=== PATIENT | female | born 1985 | race Caucasian/White ===

== ENCOUNTER → 2016-09-16 | Outpatient (CLI) | payer MEDICAID, OTHER ==
[~2016-09-16] MED LIST: CLON1TAB PO; COLA100C3 PO; DEPA1TAB3 PO; HYDR1CAP25 PO; IBUP80TA PO; NEXI20CA PO; PERCOCET PO; PRENTAB40 PO; TUMSCHW16 PO
[2016-09-16 10:59] LABS: BASO % 0.3 % (0.0-1.0); EOS # 0.2 K/mm3 (0.0-0.50); EOS % 2.8 % (0.0-3.0); LARGE UNSTAINED CELL # 0.1 K/mm3 (0.0-0.4); LYMPH # 1.7 K/mm3 (1.5-4.5); MEAN CORPUSCULAR HEMOGLOBIN 30.9 pg (27.0-33.0); MEAN CORPUSCULAR HGB CONC 34.7 g/dl (32.0-36.5); MONO # 0.4 K/mm3 (0.0-0.8); MONO % 4.1 % (0.0-5.0); NEUTROPHILS # 6.4 K/mm3 (1.8-7.7); NEUTROPHILS % 73.8 % (36.0-66.0); PLATELET COUNT, AUTOMATED 271 k/mm3 (150-450); RED CELL DISTRIBUTION WIDTH 13.2 % (11.5-14.5); WHITE BLOOD COUNT 8.7 K/mm3 (4.0-10.0)
[2016-09-17 10:42] LABS: HBsAg Prenatal NEGATIVE (NEGATIVE)
== END ==
LOC: M LAB 10:25
PROVIDERS: ATTEND Obstetrics & Gynecology
DX: Z34.81 Encounter for supervision of other normal pregnancy, first trimester (principal)

== ENCOUNTER → 2016-09-25 | Outpatient (CLI) | payer OTHER ==
--- NOTE | 2016-09-26 03:39 | REP ---
Clinical: Anatomical evaluation. Comparison: None . Findings: Examination demonstrates a single live intrauterine in breech presentation. motion is identified by technologist. Placenta is noted anteriorly and grade one without evidence for placenta previa or abruption. Amniotic fluid volume is normal. Cervix measures the 4.0 cm in length and appears closed. No evidence for nuchal cord. Gestational age by LMP 20 weeks 0 days with HENNA 02/12/2017 . Gestational age by current measurements 19 weeks 3 days with HENNA 02/16/2017 . FHR equals 147 beats per minute. BPD 4.3 cm 19 weeks 0 days HC 16.6 cm 19 weeks 2 days AC 15.1 cm 20 weeks 2 days FL 3.0 cm 19 weeks 1 day HL 2.9 cm 18 weeks 4 days HC/AC ratio 1.10 Estimated weight 308 grams ( 37th percentile). Anatomical assessment demonstrates normal structures including cranium, choroid plexus, cavum, cerebellum/posterior fossa, facial features, lungs, four-chamber heart/ventricular outflow tracts, diaphragm, stomach, cord insertion/three-vessel cord, kidneys/bladder, and extremities. Limited evaluation of the spine due to positioning. Echogenic focus on the left cardiac ventricle likely chordae tendineae. Impression: 1. Single live intrauterine in breech presentation demonstrating appropriate interval growth. 2. Anatomical limitations as described above may warrant followup. Remainder of the assessment is normal. Signed by Rodney Santos MD 09/26/2016 03:31 A
== END ==
LOC: M RAD 09:39
PROVIDERS: ATTEND Specialist
DX: Z34.82 Encounter for supervision of other normal pregnancy, second trimester (principal)

== ENCOUNTER → 2016-10-30 | Outpatient (CLI) | payer OTHER ==
[~2016-10-30] MED LIST changes: -COLA100C3 PO; +COLA100C5 PO; +HYDR-3713 PO; +IBUP-1114 PO; +IBUP1TAB7 PO; +MOM30SS PO; +PRENTAB9 PO; +VENL37.52 PO; +VICO5TAB16 PO
--- NOTE | 2016-10-30 12:50 | REP ---
Obstetric sonography: History: Supervision of followup anatomy. Comparison study September 25, 2016. Findings: Scanning demonstrates a viable single intrauterine gestation in a breech lie. motion is observed and heart rate is recorded at 147 beats per minute. An anterior grade 1 placenta is seen without evidence of previa. Amniotic fluid is subjectively normal. Closed cervical length is 4.0 cm. No extrauterine abnormalities observed. There has been less than expected interval growth. No anomaly is seen. The following anatomic structures are identified today and felt to be sonographically unremarkable: cranium, choroid plexus, cavum, cerebellum and posterior fossa, face and profile, lungs, four-chamber heart with left and right ventricular outflow tract views, diaphragm, left-sided stomach, abdominal wall cord insertion, three-vessel umbilical cord, kidneys and bladder, spine, upper and lower extremities. Biometry chart: BPD 5.8 cm = 23 weeks 5 days Head circumference 22.1 cm = 24 weeks 1 day Abdominal circumference 19.5 cm = 24 weeks 1 day Femur length 4.3 cm = 24 weeks 0 days Humeral length 4.0 cm = 24 weeks 2 days Cerebellar diameter 2.8 cm = 24 weeks 4 days HC/AC ratio normal 1.1. Cephalic index normal 0.72. Estimated weight 663 grams, 0 pounds 7 ounces, 21st percentile for 25 weeks 0 days. S/D ratio in the umbilical cord artery by Doppler normal 3.45. Impression: Viable single intrauterine gestation at 23 weeks 5 days by today's composite criteria. Expected gestational age estimate based on prior sonography is 25 weeks 0 days. HENNA by prior sonography February 12, 2017. Estimated weight 21st percentile. anatomic survey is felt to be complete. Signed by Ishan Gaitan MD 10/30/2016 04:40 P
== END ==
LOC: M SMT 10:34
PROVIDERS: ATTEND Obstetrics & Gynecology
DX: O34.211 Maternal care for low transverse scar from previous cesarean delivery (principal); Z3A.23 23 weeks gestation of pregnancy

== ENCOUNTER 2016-12-04 11:11 | Outpatient (CLI) | payer OTHER ==
[~2016-12-04] VITALS: Ht 165.1 cm; Wt 52.0 kg
[~2016-12-04 11:11] MED LIST changes: -HYDR-3713 PO; -IBUP-1114 PO; -IBUP1TAB7 PO; -MOM30SS PO; -PRENTAB9 PO; -VENL37.52 PO; -VICO5TAB16 PO
[2016-12-04] MEDS ORDERED: HYDR-3713 PO (11:17)
[2016-12-04] MEDS ORDERED: LR 1,000 ML IV SCH (11:19)
[2016-12-04] MEDS ORDERED: LACTATED RINGER'S 1000 ML IV STA (11:19)
[2016-12-04 11:31] VITALS: BP 117/61
[2016-12-04 12:05] LABS: MEAN CORPUSCULAR HGB CONC 35.6 g/dl (32.0-36.5); MEAN CORPUSCULAR VOLUME 89.9 fl (80.0-96.0); RED CELL DISTRIBUTION WIDTH 12.7 % (11.5-14.5); WHITE BLOOD COUNT 12.9 K/mm3 (4.0-10.0)
[2016-12-04] MEDS ORDERED: TERBUTALINE SULFATE 1 MG/ML VIAL (J3105) SC ONE (13:00)
[2016-12-04 13:08] VITALS: BP 109/57
[2016-12-12 08:07] LABS: GC Carboxy THC 324 ng/mL (Cutoff=10)
[2017-01-23] MEDS ORDERED: VENL37.52 PO (07:51)
== END 2016-12-04 15:00 | disposition home or self-care (01) ==
LOC: M LDO 11:11
PROVIDERS: ATTEND Specialist
DX: O99.89 Other specified diseases and conditions complicating pregnancy, childbirth and the puerperium (principal); Z3A.28 28 weeks gestation of pregnancy; O24.913 Unspecified diabetes mellitus in pregnancy, third trimester; Z96.41 Presence of insulin pump (external) (internal); O47.03 False labor before 37 completed weeks of gestation, third trimester; O23.33 Infections of other parts of urinary tract in pregnancy, third trimester
CPT/HCPCS: 76815; 80307; 80349; 85027; 96372; 96374; J3105

== ENCOUNTER → 2017-01-12 | Outpatient (CLI) | payer OTHER ==
[~2017-01-12] MED LIST changes: +HYDR-3713 PO; +IBUP-1114 PO; +IBUP1TAB7 PO; +MOM30SS PO; +PRENTAB9 PO; +VENL37.52 PO; +VICO5TAB16 PO
--- NOTE | 2017-01-12 13:29 | REP ---
OB ULTRASOUND: Real-time sonographic evaluation of the gravid uterus performed. There is a single living intrauterine gestation with estimated gestational age of 34 weeks 4 days. EDC 02/19/2017. Today's measurements indicate appropriate growth. BPD 83 mm 33 weeks 2 days, 30th percentile HC 308 mm 34 weeks 3 days, 47th percentile AC 302 mm 34 weeks 1 day, 44th percentile FL 65 mm 33 weeks 4 days, 34th percentile HC/AC ratio is 1.02 within normal range. Estimated weight 2310 grams, 35th percentile. Cervix is closed and measures 3.8 cm in length. heart rate 147 beats per minute. Amniotic fluid essentially within normal limits although NATALIE 7.6 is below normal range of 8.0 - 24.9. S/d ratio 2.17 within normal range of 2.0 - 3.0. RI is 0.54 slightly below normal range of 0.59 - 0.75. Lateral ventricles, posterior fossa, stomach, cord insertion, kidneys and bladder are visualized and are grossly unremarkable. position is vertex. Placenta anterior and grade 2 with no previa or abruption. Signed by Anthony Day MD 01/12/2017 04:12 P
== END ==
LOC: M RAD 11:50
PROVIDERS: ATTEND Obstetrics & Gynecology
DX: O26.843 Uterine size-date discrepancy, third trimester (principal); Z36.87 Encounter for antenatal screening for uncertain dates; Z3A.34 34 weeks gestation of pregnancy

== ENCOUNTER → 2017-01-27 | Outpatient (REF) | payer OTHER | LOC: M LAB REF 12:57 | PROVIDERS: ATTEND Specialist | DX: O47.03 False labor before 37 completed weeks of gestation, third trimester (principal) ==

== ENCOUNTER 2017-01-30 05:12 | Inpatient (IN) | payer OTHER ==
[~2017-01-30] VITALS: Ht 165.1 cm; Wt 58.0 kg
[2017-01-30] VITALS (9 sets, daily range): BP systolic 94–107; BP diastolic 50–66
[~2017-01-30 05:12] MED LIST changes: -IBUP-1114 PO; -IBUP1TAB7 PO; -MOM30SS PO; -PRENTAB9 PO; -VICO5TAB16 PO
[2017-01-30] MEDS ORDERED: LR 1,000 ML IV SCH ×2 (05:45→09:15)
[2017-01-30] MEDS ORDERED: LR 1,000 ML IV ONE (05:45)
[2017-01-30] MEDS ORDERED: BICITRA 30ML SOLN UDC PO ONE (05:45)
[2017-01-30 06:00] LABS: MEAN CORPUSCULAR HEMOGLOBIN 29.9 pg (27.0-33.0); MEAN CORPUSCULAR HGB CONC 32.8 g/dl (32.0-36.5); MEAN CORPUSCULAR VOLUME 91.2 fl (80.0-96.0); PLATELET COUNT, AUTOMATED 268 10^3/uL (150-450); RED CELL DISTRIBUTION WIDTH 13.2 % (11.5-14.5); WHITE BLOOD COUNT 11.5 10^3/uL (4.0-10.0)
[2017-01-30] MEDS ORDERED: MORPHINE PRES-FREE INJ 10 MG/10 ML VIAL (J2274) As Ordered ONE (07:16)
[2017-01-30] MEDS ORDERED: OXYTOCIN INJ 10 UNITS/ML VIAL (J2590) As Ordered ONE (07:17)
[2017-01-30] MEDS ORDERED: NALBUPHINE HCL 10 MG/ML AMP (J2300) IV PRN (07:44)
[2017-01-30] MEDS ORDERED: NALOXONE INJ 0.4 MG/1 ML VIAL (J2310) IV PRN ×2 (07:44)
[2017-01-30] MEDS ORDERED: METOCLOPRAMIDE INJ 10MG/2ML VIAL (J2765) IV PRN ×2 (07:44→09:15)
[2017-01-30] MEDS ORDERED: ONDANSETRON 4MG/2ML VIAL (J2405) IV PRN ×3 (07:44→09:15)
[2017-01-30] MEDS ORDERED: ONDANSETRON 4MG/2ML VIAL (J2405) As Ordered ONE (07:55)
[2017-01-30] MEDS ORDERED: PHENYLephrine HCL 500 MCG/5 ML (100MCG/ML) SYRINGE (J2370) As Ordered ONE (08:14)
[2017-01-30] MEDS ORDERED: ePHEDrine SULFATE 25 MG/5 ML(5MG/ML) SYRINGE As Ordered ONE (08:14)
[2017-01-30] MEDS ORDERED: fentaNYL 100 MCG/2 ML INJECTION (J3010) As Ordered ONE (08:16)
[2017-01-30] MEDS ORDERED: PROPOFOL 200 MG/20 ML VIAL As Ordered ONE (08:19)
[2017-01-30] MEDS ORDERED: KETOROLAC 60 MG/2 ML VIAL (J1885) As Ordered ONE (08:53)
[2017-01-30] MEDS: PRENATAL VITAMINS CHEWABLE TABLET PO SCH (09:00)
[2017-01-30] MEDS ORDERED: VICO5TAB16 PO (09:08)
[2017-01-30] MEDS ORDERED: IBUP1TAB7 PO (09:10)
[2017-01-30] MEDS ORDERED: NORCO, ANEXSIA 5/325MG TABLET (HYDROcodone/ACETAMINOPHEN) PO PRN (09:15)
[2017-01-30] MEDS ORDERED: DOCUSATE SODIUM 100 MG CAP PO PRN (09:15)
[2017-01-30] MEDS ORDERED: OXYTOCIN DRIP 30 UNITS in APPROPRIATE DILUENT 1 EA IV ONE (09:15)
[2017-01-30] MEDS ORDERED: PERCOCET 5MG/325MG TAB PO PRN (09:15)
[2017-01-30] MEDS ORDERED: MEASLES,MUMPS,RUBELLA VACCINE INJ (MMR-II) (90707) SC SCH (09:15)
[2017-01-30] MEDS ORDERED: RHOGAM 300 MCG (1500 IU) INJ (J2790) IM SCH (09:15)
[2017-01-30] MEDS ORDERED: fentaNYL 100 MCG/2 ML INJECTION (J3010) IV PRN (09:15)
[2017-01-30] MEDS ORDERED: MOM 30ML SUSPENSION UDC PO PRN (09:15)
[2017-01-30] MEDS: LR 1,000 ML IV SCH ×2 (10:45→18:36)
[2017-01-30] MEDS: KETOROLAC 30 MG/ML VIAL (J1885) IV SCH ×2 (14:30→21:27)
[2017-01-30] MEDS: NORCO, ANEXSIA 5/325MG TABLET (HYDROcodone/ACETAMINOPHEN) PO PRN (18:48)
[2017-01-31] MEDS: NORCO, ANEXSIA 5/325MG TABLET (HYDROcodone/ACETAMINOPHEN) PO PRN ×5 (00:37→22:26)
[2017-01-31] MEDS: LR 1,000 ML IV SCH ×2 (01:02→09:02)
[2017-01-31 02:00] VITALS: BP 101/55
[2017-01-31] MEDS: KETOROLAC 30 MG/ML VIAL (J1885) IV SCH ×2 (04:45→09:18)
[2017-01-31 06:00] VITALS: BP 95/51
[2017-01-31 07:16] LABS: MEAN CORPUSCULAR HEMOGLOBIN 30.2 pg (27.0-33.0); MEAN CORPUSCULAR VOLUME 91.6 fl (80.0-96.0); PLATELET COUNT, AUTOMATED 267 10^3/uL (150-450); RED CELL DISTRIBUTION WIDTH 13.4 % (11.5-14.5); WHITE BLOOD COUNT 13.5 10^3/uL (4.0-10.0)
[2017-01-31] MEDS: PRENATAL VITAMINS CHEWABLE TABLET PO SCH ×2 (07:46→08:11)
[2017-01-31 10:53] VITALS: BP 113/57
[2017-01-31 14:01] VITALS: BP 101/59
[2017-01-31] MEDS: IBUPROFEN 800 MG TAB PO SCH (17:00)
[2017-01-31 18:15] VITALS: BP 108/55
[2017-01-31 22:00] VITALS: BP 113/58
[2017-02-01] MEDS: IBUPROFEN 800 MG TAB PO SCH ×2 (01:20→08:18)
[2017-02-01] MEDS: NORCO, ANEXSIA 5/325MG TABLET (HYDROcodone/ACETAMINOPHEN) PO PRN ×2 (04:12→08:17)
[2017-02-01 05:52] VITALS: BP 109/65
[2017-02-01] MEDS ORDERED: COLA100C5 PO ×2 (08:13→10:15)
[2017-02-01] MEDS ORDERED: MOM30SS PO (08:13)
[2017-02-01] MEDS ORDERED: IBUP-1114 PO (08:13)
[2017-02-01] MEDS ORDERED: PRENTAB9 PO (08:13)
[2017-02-01] MEDS: PRENATAL VITAMINS CHEWABLE TABLET PO SCH (08:38)
--- NOTE | 2017-02-01 10:45 | DSES ---
DATE OF ADMISSION: 01/30/2017 DATE OF DISCHARGE: 02/01/2017 DISCHARGE DIAGNOSES: Repeat section and bilateral tubal ligation. DISCHARGE CONDITION: Stable. PROCEDURE PERFORMED WHILE IN HOSPITAL: 1. Spinal anesthesia. 2. section. 3. Tubal ligation. HISTORY AND HOSPITAL COURSE: This patient is a -32year-old, who presented for scheduled section. She underwent an uncomplicated section productive of liveborn female infant. She did well postoperatively. By postoperative day #2 had met all discharge criteria and was discharged home in stable condition. PHYSICAL EXAMINATION: On day of discharge, her vital signs are stable. She is afebrile. General appearance is well-appearing, no acute distress. Abdomen is appropriately tender, nondistended. The fundus is below umbilicus. Her incision was clean, dry, intact, well-approximated and non-erythemic. Steri-Strip in place. Extremities are negative for calf tenderness. DISCHARGE MEDICATION: - ibuprofen - Vicodin - Colace DISCHARGE INSTRUCTIONS: 1. She was instructed to followup in 2 weeks for incision check. 2. To report severe pain, heavy vaginal bleeding or fever. 3. To remain on pelvis rest for 6 weeks.
[2017-02-05 14:17] LABS: GC Carboxy THC 873 ng/mL (Cutoff=10)
== END 2017-02-01 10:10 | disposition home or self-care (01) | DRG 540 ==
LOC: M LDI 05:12 → M OBS 10:24
PROVIDERS: ADMIT Obstetrics & Gynecology; ATTEND Obstetrics & Gynecology
PROC: 10D00Z1 Extraction of Products of Conception, Low, Open Approach (ICD-10-PCS; principal; 2017-01-30)
PROC: 0UB70ZZ Excision of Bilateral Fallopian Tubes, Open Approach (ICD-10-PCS; 2017-01-30)
DX: O34.211 Maternal care for low transverse scar from previous cesarean delivery (principal); Z30.2 Encounter for sterilization; Z37.0 Single live birth; Z3A.37 37 weeks gestation of pregnancy

== ENCOUNTER → 2017-03-31 | Outpatient (CLI) | payer OTHER ==
[~2017-03-31] MED LIST changes: +IBUP-1114 PO; +IBUP1TAB7 PO; +MOM30SS PO; +PRENTAB9 PO; +VICO5TAB16 PO
--- NOTE | 2017-04-01 17:24 | REP ---
CT LUMBAR SPINE WITHOUT CONTRAST: 03/31/2017. Clinical history: Low back pain. Technique: Axial soft-tissue and bone windows are reviewed with coronal and sagittal reconstructions. Reconstructions are seen through to the S5 sacral segment but not its inferior most tip. An additional axial reconstruction through the plane of the L5-S1 level and sacrum is performed. Findings: No prior study. Sagittal images show slight disc space narrowing at the L5-S1 and L4-5. There are a few millimeters of retrolisthesis of L4 on L5. Small anterior osteophytes are noted at L2-3. The other disc space heights show slight narrowing at L2-3 with L3-4 and L1-2 levels maintained. All vertebral body heights are maintained. I see no spondylolysis or spondylolisthesis. Spinous processes, lamina, facets and transverse processes are intact. The visualized lower ribs, lung elliott in the deep sulci of the lower lobes included in the paraspinal region and the visible aorta and paraspinal tissues were unremarkable. Kidneys show no gross hydronephrosis or stone on these images. Paraspinal musculature unremarkable. The sacrum shows the sacral ala is symmetric and the sacral foramina intact. There is sacralization of the transverse processes of L5 with pseudoarticulation with the superior margin of the sacral ala on each side. This is an anatomic variation. No destructive lesions are seen. Mild disc bulge at L3-4, L4-5 and L5-S1 contributing to some central canal mild stenosis. L2-3 with minimal stenosis. Foramina grossly adequate. Impression: 1. Multilevel degenerative disc disease with disc bulges contributing to some mild central canal stenosis in the lower lumbar levels as described. 2. No spondylolysis, but a few millimeters of retrolisthesis of L4 on L5. 3. No compression deformity or destructive lesion. Signed by Karri Mckenna MD 04/01/2017 05:30 P
== END ==
LOC: M RAD 18:02
PROVIDERS: ATTEND Orthopaedic Surgery
DX: M51.36 Other intervertebral disc degeneration, lumbar region (principal); M51.26 Other intervertebral disc displacement, lumbar region

== ENCOUNTER → 2018-01-07 | Outpatient (CLI) | payer OTHER | LOC: M RAD 07:05 | DX: M54.5 Low back pain (principal) | CPT/HCPCS: 72148 ==

== ENCOUNTER → 2018-06-10 | Outpatient (REF) | payer OTHER ==
[~2018-06-10] MED LIST changes: -CLON1TAB PO; +CLON1TAB8 PO
[2018-06-16 00:07] LABS: HPV HYBRID CAPTURE II Negative (Negative)
== END ==
LOC: M LAB REF 14:10
PROVIDERS: ATTEND Obstetrics & Gynecology
DX: Z12.4 Encounter for screening for malignant neoplasm of cervix (principal); Z11.51 Encounter for screening for human papillomavirus (HPV)

== ENCOUNTER → 2018-08-17 | Outpatient (CLI) | payer OTHER ==
[~2018-08-17] MED LIST changes: -VICO5TAB16 PO; +VICO5TAB17 PO
--- NOTE | 2018-08-18 05:01 | REP ---
Clinical: Menorrhagia and pelvic pain . Technique: Transabdominal pelvic ultrasound followed by transvaginal examination for better evaluation of the endometrium and adnexa with color Doppler evaluation of the ovaries. Findings: Bladder is unremarkable and measures 6.4 x 2.4 x 3.6 cm . Heterogeneous anteverted uterus measures 7.8 x 4.3 x 5.2 cm . The endometrial complex measures 5.4 mm thickness. No discrete uterine or endometrial abnormalities are appreciated. section scar and myometrial calcifications suggest chronic nonspecific change. Bilateral ovaries are normal in appearance and vascularity without evidence for torsion. Right ovary measures 3.1 x 1.3 x 2.6 cm ; R I = 0.51 . Left ovary measures 2.6 x 1.2 x 1.8 cm with 1.5 cm hemorrhagic cyst ; R I = 0.57 . Small amount of free fluid in the pelvis likely physiologic . Impression: 1. Heterogeneous anteverted uterus without significant acute abnormality. 2. Suspected hemorrhagic cyst in the left ovary. Consider reevaluation in 4-6 weeks to evaluate for resolution. Electronically Signed by Rodney Santos MD 08/18/2018 04:53 A
== END ==
LOC: M RAD 10:39
PROVIDERS: ATTEND Obstetrics & Gynecology
DX: N93.9 Abnormal uterine and vaginal bleeding, unspecified (principal)

== ENCOUNTER → 2019-01-25 | Outpatient (CLI) | payer OTHER ==
--- NOTE | 2019-01-25 15:09 | REP ---
MRI lumbar spine: 01/25/2019. Indication: Lumbar radiculopathy. Comparison: No previous studies available for direct comparison. Technique: Multiplanar short and long TR sequences of the lumbar spine were performed. Findings: There is a transitional lumbosacral segment with sacralization of L5. No spinal cord abnormalities are detected. There is minimal retrolisthesis of L4-L5. The paraspinal soft tissues are unremarkable. Disc desiccation and disc space narrowing are present at L2/L3 and L4/L5. Mild disc dessication is noted at L3/L4. Marrow signal is unremarkable. L1/L2: Normal. L2/L3: Diffuse disc bulge is present with mild bilateral neural foraminal narrowing. There is minimal effacement of the ventral thecal sac. L2/L3: Diffuse disc bulge is present with mild bilateral facet arthropathy. There is mild narrowing of the spinal canal and neural foramen. L3/L4: There is a far right lateral annular fissure and associated disc protrusion which does contact the exiting right L3 nerve roots best appreciated on the sagittal STIR series image/page 13. There is no significant narrowing of the spinal canal. Mild left neural foraminal narrowing is present. L4/L5: Diffuse disc bulge and bilateral facet arthropathy are present with mild to moderate lateral recess narrowing bilaterally. The neural foramen are patent. L5/S1: Rudimentary disc is noted without disc herniation or significant spinal canal / neural foraminal narrowing. Impression: Far right lateral L3/L4 annular fissure and associated disc herniation as described. Additional degenerative sequelae as described above. Electronically Signed by Oswald He DO 01/25/2019 03:01 P
== END ==
LOC: M RAD 13:08
PROVIDERS: ATTEND Nurse Practitioner
DX: G89.29 Other chronic pain (principal); M51.36 Other intervertebral disc degeneration, lumbar region; M51.26 Other intervertebral disc displacement, lumbar region; M48.061 Spinal stenosis, lumbar region without neurogenic claudication

== ENCOUNTER → 2019-04-20 | Outpatient (REF) | payer OTHER | LOC: M SFHCCLAY 14:58 | PROVIDERS: ATTEND Family Medicine | DX: R22.1 Localized swelling, mass and lump, neck (principal); F41.9 Anxiety disorder, unspecified ==

== ENCOUNTER → 2019-04-27 | Outpatient (CLI) | payer OTHER ==
--- NOTE | 2019-04-28 03:22 | REP ---
Clinical: Soft tissue swelling. Technique: Real time murdock scale and color evaluation using linear high frequency transducer. Findings: The right thyroid gland measures 5.4 x 1.3 x 1.5 cm and includes three small similar appearing nonspecific and likely insignificant hypoechoic complex nodules measuring 3 x 2 x 2 mm in the upper pole, 5 x 3 x 2 mm approaching the isthmus, and 3 x 3 x 4 mm in the mid/lower pole. The left thyroid gland measures 5.8 x 1.7 x 1.7 cm and includes 2.5 x 1.3 x 2.1 cm complex vascular nodule approaching the isthmus along with two small nonspecific hypoechoic complex nodules similar to the right lobe which measure 3 x 2 x 3 mm in the mid pole and 3 x 2 x 2 mm in the lower pole. Impression: 1. 2.5 x 1.3 x 2.1 cm complex solid nodule in the left medial lobe. 2. Few scattered bilateral small hypoechoic nonspecific and likely insignificant nodules. Electronically Signed by Rodney Santos MD 04/28/2019 03:13 A
== END ==
LOC: M RAD 13:30
PROVIDERS: ATTEND Family Medicine
DX: R22.1 Localized swelling, mass and lump, neck (principal)

== ENCOUNTER → 2019-05-24 | Outpatient (REF) | payer OTHER | LOC: M LAB REF 12:49 | PROVIDERS: ATTEND Internal Medicine Endocrinology, Diabetes & Metabolism | DX: E04.1 Nontoxic single thyroid nodule (principal) ==

== ENCOUNTER → 2019-06-06 | Outpatient (REF) | payer OTHER | LOC: M LABDRAWC 16:22 | PROVIDERS: ATTEND Nurse Practitioner | DX: Z72.0 Tobacco use (principal) | CPT/HCPCS: 36415; G0480 ==

== ENCOUNTER → 2020-06-07 | Outpatient (CLI) | payer OTHER ==
--- NOTE | 2020-06-07 14:25 | REP ---
INDICATION: LEFT MEDIAL KNEE PAIN. COMPARISON: None. TECHNIQUE: Five views FINDINGS: Medial and lateral joint compartments show no narrowing. No spur formation is evident and I see no loose body, osteochondral defect, patellar subluxation or visible fracture. A small suprapatellar effusion is suspected on the lateral view. No avulsion fragment or foreign body. IMPRESSION: 1. Question of a small suprapatellar effusion raised on the lateral view but otherwise negative left knee series. <Electronically signed by Karri Mckenna > 06/07/20 [id number]
== END ==
LOC: M CLY 13:02
PROVIDERS: ATTEND Family Medicine
DX: M25.562 Pain in left knee (principal)

== ENCOUNTER → 2020-10-25 | Outpatient (REF) | payer OTHER ==
[2020-10-25 13:32] LABS: FREE T4 0.86 NG/DL (0.76-1.46); THYROID STIMULATING HORMONE 0.84 uIU/ML (0.358-3.740)
== END ==
LOC: M SFHCCLAY 07:35
PROVIDERS: ATTEND Family Medicine
DX: E04.1 Nontoxic single thyroid nodule (principal)

== ENCOUNTER → 2021-12-03 | Outpatient (REF) | payer OTHER | LOC: M SFHCCLAY 10:26 | PROVIDERS: ATTEND Nurse Practitioner Family | DX: Z00.00 Encounter for general adult medical examination without abnormal findings (principal) ==

== ENCOUNTER → 2023-01-01 | Outpatient (REF) | payer OTHER ==
[2023-01-01 18:58] LABS: BASO # 0.1 10^3/uL (0.0-0.2); EOS # 0.3 10^3/uL (0.0-0.5); EOS % 5.4 % (0.0-3.0); HEMATOCRIT 37.8 % (36.0-47.0); HEMOGLOBIN 12.2 g/dl (12.0-15.5); LYMPH # 1.8 10^3/uL (1.5-5.0); LYMPH % 28.8 % (24.0-44.0); MEAN CORPUSCULAR HGB CONC 32.3 g/dl (32.0-36.5); MONO # 0.5 10^3/uL (0.0-0.8); MONO % 8.3 % (2.0-8.0); NEUTROPHILS # 3.6 10^3/uL (1.5-8.5); NEUTROPHILS % 56.3 % (36.0-66.0); PLATELET COUNT, AUTOMATED 375 10^3/uL (150-450); WHITE BLOOD COUNT 6.3 10^3/uL (4.0-10.0)
[2023-01-01 19:08] LABS: ALBUMIN 4.2 G/DL (3.2-5.2); ALKALINE PHOSPHATASE 45 U/L (46-116); ALT/SGPT 12 U/L (7.0-40); AST/SGOT 12 U/L (<34); BILIRUBIN,TOTAL 0.4 MG/DL (0.3-1.2); BLOOD UREA NITROGEN 9 MG/DL (9-23); CALCIUM LEVEL 9.1 MG/DL (8.5-10.1); CARBON DIOXIDE LEVEL 30 MMOL/L (20-31); CHLORIDE LEVEL 103 MMOL/L (98-107); CREATININE FOR GFR 0.73 MG/DL (0.55-1.30); GLOMERULAR FILTRATION RATE > 60.0 (>60); GLUCOSE, FASTING 92 MG/DL (60-100); SODIUM LEVEL 138 MMOL/L (136-145)
[2023-01-01 19:12] LABS: THYROID STIMULATING HORMONE 0.388 uIU/ML (0.55-4.78)
[2023-01-01 19:13] LABS: FREE T4 1.01 NG/DL (0.89-1.76)
== END ==
LOC: M SFHCCLAY 11:29
PROVIDERS: ATTEND Nurse Practitioner Family
DX: E04.1 Nontoxic single thyroid nodule (principal); M54.9 Dorsalgia, unspecified; F51.01 Primary insomnia

== ENCOUNTER → 2023-07-29 | Outpatient (REF) | payer OTHER ==
[2023-07-29 18:51] LABS: ALBUMIN 3.9 G/DL (3.2-5.2); ALKALINE PHOSPHATASE 51 U/L (46-116); ALT/SGPT 11 U/L (7.0-40); AST/SGOT 16 U/L (<34); BILIRUBIN,TOTAL 0.4 MG/DL (0.3-1.2); BLOOD UREA NITROGEN 10 MG/DL (9-23); CALCIUM LEVEL 9.2 MG/DL (8.5-10.1); CARBON DIOXIDE LEVEL 27 MMOL/L (20-31); CHLORIDE LEVEL 104 MMOL/L (98-107); CREATININE FOR GFR 0.71 MG/DL (0.55-1.30); GLOMERULAR FILTRATION RATE > 60.0 (>60); GLUCOSE, FASTING 71 MG/DL (60-100); SODIUM LEVEL 135 MMOL/L (136-145); TOTAL PROTEIN 6.9 G/DL (5.7-8.2)
[2023-07-29 18:53] LABS: FREE T4 0.89 NG/DL (0.89-1.76); THYROID STIMULATING HORMONE 0.456 uIU/ML (0.55-4.78)
== END ==
LOC: M SFHCCLAY 10:54
PROVIDERS: ATTEND Nurse Practitioner Family
DX: E04.1 Nontoxic single thyroid nodule (principal); F51.01 Primary insomnia

== ENCOUNTER → 2024-03-04 | Outpatient (CLI) | payer OTHER | LOC: M CLY 09:26 | PROVIDERS: ATTEND Nurse Practitioner Family | DX: M54.9 Dorsalgia, unspecified (principal) ==

== ENCOUNTER → 2025-01-12 | Outpatient (REF) | payer OTHER ==
[2025-01-12 18:09] LABS: ALT/SGPT 16 U/L (7.0-40); AST/SGOT 17 U/L (<34); CALCIUM LEVEL 9.1 MG/DL (8.5-10.1); CARBON DIOXIDE LEVEL 27 MMOL/L (20-31); CHLORIDE LEVEL 106 MMOL/L (98-107); CHOLESTEROL LEVEL 204 MG/DL (<200); CHOLESTEROL RISK RATIO 4.09 (<5); CREATININE FOR GFR 0.67 MG/DL (0.55-1.30); GLOMERULAR FILTRATION RATE > 90.0 (>60); LDL CHOLESTEROL 130.2 MG/DL (<100); NON-HDL-C 154.2 MG/DL; POTASSIUM SERUM 4.3 MMOL/L (3.5-5.1); SODIUM LEVEL 138 MMOL/L (136-145); TRIGLYCERIDES LEVEL 120 MG/DL (<150)
== END ==
LOC: M SFHCCLAY 11:04
PROVIDERS: ATTEND Nurse Practitioner Family
DX: Z00.00 Encounter for general adult medical examination without abnormal findings (principal); M54.9 Dorsalgia, unspecified; F51.01 Primary insomnia; F41.9 Anxiety disorder, unspecified; F11.90 Opioid use, unspecified, uncomplicated

== ENCOUNTER → 2025-01-26 | Outpatient (CLI) | payer OTHER | LOC: M WHC 14:31 | PROVIDERS: ATTEND Nurse Practitioner Family | DX: Z53.9 Procedure and treatment not carried out, unspecified reason (principal) ==